=== PATIENT | female | born 1975 | race Caucasian/White ===

== ENCOUNTER 2018-12-24 14:18 | Emergency (ER) | payer OTHER ==
[2018-12-24 14:25] VITALS: TEMP 98
[2018-12-24] MEDS ORDERED: SODIUM CHLORIDE 0.9% 1,000 ML IV STA (15:12)
--- NOTE | 2018-12-24 15:53 | ED ---
Back Pain HPI - General Chief Complaint: Back Pain/Injury Stated Complaint: Leg pain Time Seen by Provider: 12/24/18 14:39 Source: patient, RN notes reviewed, old records reviewed Limitations: no limitations - History of Present Illness Initial Comments: Ted is a 43-year-old female, with a history of chronic back pain. She presents today with 3-4 days of saddle anesthesias, and abnormal sensation over the top of bilateral proximal thighs. Patient reports that she also feels that she is not able to fully urinate with a normal stream that she does. She denies any incontinence of her stools. Patient states that she has no current back pain at this time. She states that she is occasionally seen a chiropractor but not as of recently. Patient states that she startedsymptoms, was concerned after researching concern for possible impingement of her nerves. Patient sta soto since that currently she has no pain radiating down her legs. She just complains of an abnormal sensation or "wet feeling "on her legs. - Related Data Previous Rx's Medication Instructions Recorded Dexamethasone 0.75 mg PO DAILY #12 tab 12/24/18 Allergies Allergy/AdvReac Type Severity Reaction Status Date / Time No Known Allergies Allergy Verified 12/24/18 14:25 Review of Systems ROS Statement: Those systems with pertinent positive or pertinent negative responses have been documented in the HPI. ROS Other: All systems not noted in ROS Statement are negative. Past Medical History Past Medical History: No Reported History History of Any Multi-Drug Resistant Organisms: None Reported Additional Past Surgical History / Comment(s): hip surgery. uterine surgery. ankle surgery. Past Psychological History: No Psychological Hx Reported Smoking Status: Never smoker Past Alcohol Use History: Occasional Past Drug Use History: None Reported General Exam - General Exam Comments Initial Comments: 43-year-old female. Limitations: no limitations General appearance: alert, in no apparent distress Head exam: Present: atraumatic, normocephalic, normal inspection Eye exam: Present: normal appearance, PERRL, EOMI. Absent: scleral icterus, conjunctival injection, periorbital swelling ENT exam: Present: normal exam, mucous membranes moist Neck exam: Present: normal inspection Respiratory exam: Present: normal lung sounds bilaterally. Absent: respiratory distress, wheezes, rales, rhonchi, stridor Cardiovascular Exam: Present: regular rate, normal rhythm, normal heart sounds. Absent: systolic murmur, diastolic murmur, rubs, gallop, clicks GI/Abdominal exam: Present: soft, normal bowel sounds. Absent: distended, tenderness, guarding, rebound, rigid Rectal exam: Present: normal rectal tone, other (Patient has normal sensation over her perineum and can feel light dull touch over inner thighs.). Absent: decreased rectal tone Extremities exam: Present: normal inspection, full ROM, normal capillary refill. Absent: tenderness, pedal edema, joint swelling, calf tenderness Back exam: Present: normal inspection Neurological exam: Present: alert, oriented X3, CN II-XII intact Psychiatric exam: Present: normal affect, normal mood Course Vital Signs 12/24/18 12/24/18 14:21 18:00 Temperature 98.0 F Pulse Rate 76 62 Respiratory 18 16 Rate Blood Pressure 153/104 117/80 O2 Sat by Pulse 100 99 Oximetry Medical Decision Making - Medical Decision Making 43-year-old female presents today for paresthesias over her anterior thighs, concern for difficulty with voiding. Patient urinated and ultrasound was completed after and showed no evidence of postvoid residual. It measured to be 0 mm within the bladder. She had normal sensation over her perineum and normal rectal tone. She denies any back pain is time it has had a history of chronic back problems. Patient had a computed tomography scan of her lumbar spine cleared just shows some mild posterior disc herniation of L5-S1 and L4-L5. Otherwise there is no other significant changes. I discussed with Dr. Wallis. I discussed the case then with Dr. Munson agrees to see the Patient tomorrow in office is no clinical picture at this time for concern for cauda equina. Discussed likely paresthesias. Patient was started on steroids given 1 dose of emergency department. The Patient will follow-up with Dr. Munson in the morning. All questions were answered return parameters were discussed. - Lab Data Result diagrams: 12/24/18 15:45 12/24/18 15:55 Lab Results 12/24/18 12/24/18 12/24/18 Range/Units 15:45 15:45 15:55 WBC 9.5 (3.8-10.6) k/uL RBC 4.69 (3.80-5.40) m/uL Hgb 14.8 (11.4-16.0) gm/dL Hct 45.7 (34.0-46.0) % MCV 97.5 (80.0-100.0) fL MCH 31.6 (25.0-35.0) pg MCHC 32.4 (31.0-37.0) g/dL RDW 12.6 (11.5-15.5) % Plt Count 241 (150-450) k/uL Neutrophils % 76 % Lymphocytes % 17 % Monocytes % 4 % Eosinophils % 0 % Basophils % 1 % Neutrophils # 7.3 (1.3-7.7) k/uL Lymphocytes # 1.6 (1.0-4.8) k/uL Monocytes # 0.4 (0-1.0) k/uL Eosinophils # 0.0 (0-0.7) k/uL Basophils # 0.1 (0-0.2) k/uL Sodium 137 (137-145) mmol/L Potassium 4.6 (3.5-5.1) mmol/L Chloride 104 (98-107) mmol/L Carbon Dioxide 23 (22-30) mmol/L Anion Gap 10 mmol/L BUN 13 (7-17) mg/dL Creatinine 0.56 (0.52-1.04) mg/dL Est GFR (CKD-EPI)AfAm >90 (>60 ml/min/1.73 sqM) Est GFR (CKD-EPI)NonAf >90 (>60 ml/min/1.73 sqM) Glucose 94 (74-99) mg/dL Calcium 10.0 (8.4-10.2) mg/dL Total Bilirubin 0.7 (0.2-1.3) mg/dL AST 29 (14-36) U/L ALT 22 (9-52) U/L Alkaline Phosphatase 62 (38-126) U/L Total Protein 8.2 (6.3-8.2) g/dL Albumin 4.8 (3.5-5.0) g/dL Urine Color Light Yellow Urine Appearance Clear (Clear) Urine pH 5.5 (5.0-8.0) Ur Specific [place] 1.008 (1.001-1.035) Urine Protein Negative (Negative) Urine Glucose (UA) Negative (Negative) Urine Ketones Negative (Negative) Urine Blood Trace H (Negative) Urine Nitrite Negative (Negative) Urine Bilirubin Negative (Negative) Urine Urobilinogen <2.0 (<2.0) mg/dL Ur Leukocyte Esterase Negative (Negative) Urine RBC <1 (0-5) /hpf Urine WBC <1 (0-5) /hpf Ur Squamous Epith Cells 3 (0-4) /hpf Urine Bacteria Rare H (None) /hpf Urine Mucus Rare H (None) /hpf - Radiology Data Radiology results: report reviewed A computed tomography scan lumbar spine. No fracture. No spinal stenosis. Small posterior disc bulging at L4-L5 and L5-S1 without spinal stenosis or impingement of the neural elements. Disposition Clinical Impression: Paresthesia of lower extremity Disposition: HOME SELF-CARE Condition: Good Instructions (If sedation given, give patient instructions): Lumbar Radiculopathy (ED) Additional Instructions: Patient advised to follow-up tomorrow with Dr. Munson. Take the steroids starting tomorrow. Return to the emergency department if any alarming signs or symptoms occur. Prescriptions: Dexamethasone 0.75 mg PO DAILY #12 tab Is patient prescribed a controlled substance at d/c from ED?: No Referrals: None,Stated [Primary Care Provider] - 1-2 days [place] Munson, [Doctor of Osteopathic Medicine] - 1-2 days Time of Disposition: 17:46
[2018-12-24 16:13] LABS: Basophils # (A) 0.1 k/uL (0-0.2); Basophils % (A) 1 %; Eosinophils % (A) 0 %; HCT 45.7 % (34.0-46.0); HGB 14.8 gm/dL (11.4-16.0); Lymphocytes # (A) 1.6 k/uL (1.0-4.8); Lymphocytes % (A) 17 %; MCH 31.6 pg (25.0-35.0); MCHC 32.4 g/dL (31.0-37.0); MCV 97.5 fL (80.0-100.0); Mean Platelet Volume 7.1; Monocytes # (A) 0.4 k/uL (0-1.0); Monocytes % (A) 4 %; Neutrophils # (A) 7.3 k/uL (1.3-7.7); Neutrophils % (A) 76 %; Platelet Count 241 k/uL (150-450); RBC 4.69 m/uL (3.80-5.40); RDW 12.6 % (11.5-15.5); WBC 9.5 k/uL (3.8-10.6)
[2018-12-24 16:18] LABS: ALT 22 U/L (9-52); AST 29 U/L (14-36); African American GFR (CKD) >90 (>60 ml/min/1.73 sqM); Albumin 4.8 g/dL (3.5-5.0); Alkaline Phosphatase 62 U/L (38-126); Anion Gap 10 mmol/L; Blood Urea Nitrogen 13 mg/dL (7-17); Carbon Dioxide 23 mmol/L (22-30); Chloride 104 mmol/L (98-107); Glucose 94 mg/dL (74-99); Potassium 4.6 mmol/L (3.5-5.1); Sodium 137 mmol/L (137-145); Total Bilirubin 0.7 mg/dL (0.2-1.3); Total Protein 8.2 g/dL (6.3-8.2)
[2018-12-24 16:23] LABS: Appearance,Urine Clear (Clear); Bacteria,Urine Rare /hpf; Bilirubin,Urine Negative (Negative); Blood,Urine Trace (Negative); Color,Urine Light Yellow; Glucose,Urine (UA) Negative (Negative); Ketones,Urine Negative (Negative); Leukocyte Esterase,Urine Negative (Negative); Mucus,Urine Rare /hpf; Nitrite,Urine Negative (Negative); PH, Urine 5.5 (5.0-8.0); Protein,Urine Negative (Negative); RBC,Urine <1 /hpf (0-5); Specific Gravity,Urine 1.008 (1.001-1.035); Squamous Epithelial Cell,Urine 3 /hpf (0-4); Urobilinogen,Urine <2.0 mg/dL (<2.0); WBC,Urine <1 /hpf (0-5)
--- NOTE | 2018-12-24 16:52 | CT ---
EXAMINATION TYPE: CT lumbar spine w con DATE OF EXAM: 12/24/2018 COMPARISON: None HISTORY: Lower back pain, Unable to urinate CT DLP: 444.6 mGycm Automated exposure control for dose reduction was used. CONTRAST: CT scan of the lumbar is performed with IV Contrast, patient injected with 100 mL of Isovue 300. Lumbar vertebra have normal alignment. Disc spaces are fairly normal. Posterior elements are intact. There is no compression fracture. There is no lumbar paraspinal mass. Sacroiliac joints are intact. IMPRESSION: Negative CT scan of the lumbar spine. No fracture. No spinal stenosis. Small posterior disc bulging a t L4-5 L5-S1 without spinal stenosis or impingement on the neural elements.
[2018-12-24] MEDS ORDERED: methylPREDNISolone SOD SUCCI 125 MG/2 ML VIAL IV STA (17:23)
[2018-12-24 18:17] VITALS: BP 117/80; PULSE 62; RESP 16
== END 2018-12-24 18:00 | disposition home or self-care (01) ==
LOC: EC 14:18
DX: R20.2 Paresthesia of skin (principal); M51.27 Other intervertebral disc displacement, lumbosacral region; G89.29 Other chronic pain; M54.9 Dorsalgia, unspecified; Z98.890 Other specified postprocedural states
CPT/HCPCS: 36415; 80053; 85025; 81001; 72132; 99284; 96374; 96361; J2930; Q9967